=== PATIENT | female | born 1970 | race Caucasian/White ===

== ENCOUNTER 2018-09-26 09:50 | Emergency (ER) | payer OTHER ==
--- OUTSIDE RECORDS SUMMARY | 2018-09-26 09:52 | XMS REPORT | Continuity of Care Document ---
:1970 Author Organization [facility] Address [address] [place] [address] Phone Unavailable Care Team Providers Name Role Phone KIM CANNON MD Primary Care Physician Insurance Providers Guarantor Gail Rondon Address [address] [place] [address] Email [facility]lo Policy Number [id number] Subscriber's Name Gail Rondon Relationship 18 Self / Same As Patient Advance Directives Directive Response Recorded Date/Time Does the patient have an advance directive? No 11/14/17 1:34pm Do you have a Directive to Physician? No 05/13/18 5:58pm Do you have a Medical Power of Watch Inspector? No 05/13/18 5:58pm Do you have an out of hospital Do Not Resuscitate Order? No 05/13/18 5:58pm Do you have any special needs we should be aware of? No 05/13/18 5:58pm Do you have a support person here with you today? Yes 05/13/18 5:58pm Did patient receive Notice of Privacy Practices? Yes 05/13/18 5:58pm Did patient receive patient rights and responsibilities? Yes 05/13/18 5:58pm Problems No problem information available. Medications No medication information available. Social History Smoking Status Start Date Stop Date Never Smoker Hospital Discharge Instructions No hospital discharge instruction information available. Plan of Care Discharge Date 05/13/18 9:15pm Disposition HOME, SELF-CARE Condition at Discharge Stable Instructions/Education Provided Abdominal Pain - Adult Forms Provided Work/School Excuse Prescriptions See Medication Section Referrals KIM CANNON MD Order Date: Call for an appointment Address: [address] [place] [id number] Additional Instructions/Education Call for follow up appointment to see your medical provider or PROMOTIONS ASSISTANT SALES MARKETING provider. Take over the counter Motrin or Tylenol medication as needed for comfort. If prescribed pain medication on discharge, take the pain medication as prescribed and adhere to the warnings given for pain medication such as no swimming, driving operating heavy machinery, drinking or mixing with other medications that can interact with the narcotic. discussed at the bedside, drink fluids, rest and return to the emergency department for any fever, shortness of breath, chest pain, abdominal pain, trouble handling oral secretions or any new concerns. Functional Status No functional status information available. Allergies, Adverse Reactions, Alerts No known allergies. Immunizations No immunization information available. Vital Signs Acute Vital Signs Vital Response Date/Time Pulse Pulse Rate (adult) 77 bpm (60 - 90) 11/14/2017 4:25pm Respiratory Rate 18 bpm (12 - 24) 11/14/2017 4:25pm Blood Pressure 137/91 mm Hg 11/14/2017 4:25pm Height 5 ft 3 in 05/13/2018 5:36pm Weight 192 lb 05/13/2018 5:36pm Body Mass Index 34.0 kg/m^2 05/13/2018 5:36pm Results Laboratory Results Test Name Result Units Flags Reference Collection Result Comments Date/Time Date/Time White Blood Count 11.25 x10e3/uL H 4.8-10.8 05/13/2018 05/13/2018 5:42pm 6:12pm Red Blood Count 5.03 x10e6/uL 3.6-5.1 05/13/2018 05/13/2018 5:42pm 6:12pm Hemoglobin 12.6 g/dL 12.0-16.0 05/13/2018 05/13/2018 5:42pm 6:12pm Hematocrit 39.4 % 34.2-44.1 05/13/2018 05/13/2018 5:42pm 6:12pm Mean Corpuscular 78.3 fL L 81-99 05/13/2018 05/13/2018 Volume 5:42pm 6:12pm Mean Corpuscular 25.0 pg L 28-32 05/13/2018 05/13/2018 Hemoglobin 5:42pm 6:12pm Mean Corpuscular 32.0 g/dL 31-35 05/13/2018 05/13/2018 Hemoglobin 5:42pm 6:12pm Concent Red Cell 14.3 % 11.7-14.4 05/13/2018 05/13/2018 Distribution 5:42pm 6:12pm Width Platelet Count 307 x10e3/uL 140-360 05/13/2018 05/13/2018 5:42pm 6:12pm Neutrophils (%) 69.9 % 38.7-80.0 05/13/2018 05/13/2018 (Auto) 5:42pm 6:12pm Lymphocytes (%) 21.9 % 18.0-39.1 05/13/2018 05/13/2018 (Auto) 5:42pm 6:12pm Monocytes (%) 6.1 % 4.4-11.3 05/13/2018 05/13/2018 (Auto) 5:42pm 6:12pm Eosinophils (%) 1.2 % 0.0-6.0 05/13/2018 05/13/2018 (Auto) 5:42pm 6:12pm Basophils (%) 0.5 % 0.0-1.0 05/13/2018 05/13/2018 (Auto) 5:42pm 6:12pm IM GRANULOCYTES % 0.4 % 0.0-1.0 05/13/2018 05/13/2018 5:42pm 6:12pm Neutrophils # 7.9 H 2.1-6.9 05/13/2018 05/13/2018 (Auto) 5:42pm 6:12pm Lymphocytes # 2.5 1.0-3.2 05/13/2018 05/13/2018 (Auto) 5:42pm 6:12pm Monocytes # 0.7 0.2-0.8 05/13/2018 05/13/2018 (Auto) 5:42pm 6:12pm Eosinophils # 0.1 0.0-0.4 05/13/2018 05/13/2018 (Auto) 5:42pm 6:12pm Basophils # 0.1 0.0-0.1 05/13/2018 05/13/2018 (Auto) 5:42pm 6:12pm Absolute Immature 0.05 x10e3/uL 0-0.1 05/13/2018 05/13/2018 Granulocyte (auto 5:42pm 6:12pm Prothrombin Time 12.2 seconds 11.9-14.5 05/13/2018 05/13/2018 5:42pm 6:18pm Prothromb Time 0.83 05/13/2018 05/13/2018 Oral Anticoagulant Therapy INR Values: International 5:42pm 6:18pm 1. Low Intensity Therapy 1.5 - 2.0 Ratio 2. Moderate Intensity Therapy 2.0 - 3.0 3. High Intensity Therapy(1) 2.5 - 3.5 4. High Intensity Therapy(2) 3.0 - 4.0 5. Panic Value INR > 5.0 Activated Partial 28.3 seconds 23.8-35.5 05/13/2018 05/13/2018 Thromboplast Time 5:42pm 6:19pm Urine Color YELLOW YELLOW 05/13/2018 05/13/2018 5:42pm 6:16pm Urine Clarity CLEAR CLEAR 05/13/2018 05/13/2018 5:42pm 6:16pm Urine Specific 1.030 H 1.010-1.02 05/13/2018 05/13/2018 [place] 5 5:42pm 6:16pm Urine pH 6 5 - 7 05/13/2018 05/13/2018 5:42pm 6:16pm Urine Leukocyte NEGATIVE NEGATIVE 05/13/2018 05/13/2018 Esterase 5:42pm 6:16pm Urine Nitrite NEGATIVE NEGATIVE 05/13/2018 05/13/2018 5:42pm 6:16pm Urine Protein NEGATIVE NEGATIVE 05/13/2018 05/13/2018 5:42pm 6:16pm Urine Glucose NEGATIVE NEGATIVE 05/13/2018 05/13/2018 (UA) 5:42pm 6:16pm Urine Ketones NEGATIVE NEGATIVE 05/13/2018 05/13/2018 5:42pm 6:16pm Urine 0.2 mg/dL 0.2 - 1 05/13/2018 05/13/2018 Urobilinogen 5:42pm 6:16pm Urine Bilirubin NEGATIVE NEGATIVE 05/13/2018 05/13/2018 5:42pm 6:16pm Urine Blood NEGATIVE NEGATIVE 05/13/2018 05/13/2018 5:42pm 6:16pm Urine WBC NONE /HPF 0-5 05/13/2018 05/13/2018 5:42pm 6:18pm Urine RBC NONE /HPF 0-5 05/13/2018 05/13/2018 5:42pm 6:18pm Urine Bacteria MANY /HPF H NONE 05/13/2018 05/13/2018 5:42pm 6:18pm Urine Epithelial MODERATE /LPF NONE 05/13/2018 05/13/2018 Cells 5:42pm 6:18pm Sodium Level 136 mmol/L 136-145 05/13/2018 05/13/2018 5:40pm 6:25pm Potassium Level 3.7 mmol/L 3.5-5.1 05/13/2018 05/13/2018 5:40pm 6:25pm Chloride Level 100 mmol/L 98-107 05/13/2018 05/13/2018 5:40pm 6:25pm Carbon Dioxide 25 mmol/L 22-29 05/13/2018 05/13/2018 Level 5:40pm 6:25pm Anion Gap 14.7 mmol/L 8-16 05/13/2018 05/13/2018 5:40pm 6:25pm Blood Urea 7 mg/dL 7-26 05/13/2018 05/13/2018 Nitrogen 5:40pm 6:25pm Creatinine 0.74 mg/dL 0.57-1.11 05/13/2018 05/13/2018 5:40pm 6:25pm BUN/Creatinine 9 6-25 05/13/2018 05/13/2018 Ratio 5:40pm 6:25pm Estimat > 60 ML/MIN 60- 05/13/2018 05/13/2018 Ranges were taken from the National Kidney Disease Education Glomerular 5:40pm 6:25pm Program and the National Kidney Foundation literature. Filtration Rate Reference ranges: 60 or greater: Normal 16-59 (for 3 consecutive months): Chronic kidney disease 15 or less: Kidney failure Glucose Level 102 mg/dL 74-118 05/13/2018 05/13/2018 5:40pm 6:25pm Calcium Level 9.4 mg/dL 8.4-10.2 05/13/2018 05/13/2018 5:40pm 6:25pm Magnesium Level 2.3 MG/DL H 1.3-2.1 05/13/2018 05/13/2018 5:40pm 6:25pm Total Bilirubin 0.3 mg/dL 0.2-1.2 05/13/2018 05/13/2018 5:40pm 6:25pm Aspartate Amino 20 IU/L 5-34 05/13/2018 05/13/2018 Transf (AST/SGOT) 5:40pm 6:25pm Alanine 20 IU/L 0-55 05/13/2018 05/13/2018 Aminotransferase 5:40pm 6:25pm (ALT/SGPT) Total Protein 7.5 g/dL 6.5-8.1 05/13/2018 05/13/2018 5:40pm 6:25pm Albumin 4.2 g/dL 3.5-5.0 05/13/2018 05/13/2018 5:40pm 6:25pm Globulin 3.3 g/dL 2.3-3.5 05/13/2018 05/13/2018 5:40pm 6:25pm Albumin/Globulin 1.3 0.8-2.0 05/13/2018 05/13/2018 Ratio 5:40pm 6:25pm Alkaline 133 IU/L 40-150 05/13/2018 05/13/2018 Phosphatase 5:40pm 6:25pm Amylase Level 47 U/L 25-125 05/13/2018 05/13/2018 5:40pm 6:25pm Lipase 23 U/L 8-78 05/13/2018 05/13/2018 5:40pm 6:25pm Human Chorionic NEGATIVE NEGATIVE 05/13/2018 05/13/2018 Gonadotropin, 5:40pm 6:14pm Qual Procedures Procedure Status Date Provider(s) Computed tomography of brain without Completed 11/14/17 PACO GIBBS MD radiopaque contrast Computed tomography of abdomen and pelvis with Completed 05/13/18 DEBBIE LAMAR NP contrast Encounters Encounter Location Arrival/Admit Date Discharge/Depart Date Attending Provider Departed [facility] 05/13/18 3:49pm 05/13/18 9:15pm SHARON DEAN Emergency Room Patients [facility] Departed [facility] 11/14/17 12:42pm 11/14/17 4:48pm PACO GIBBS Emergency Room Patients [facility]
--- OUTSIDE RECORDS SUMMARY | 2018-09-26 09:52 | XMS REPORT ---
:1970 Author Organization [facility] Address [address] [place] [address] Care Team Providers Name Role Phone SHARON DEAN Unavailable Unavailable GAILPACO BERNAL Unavailable Unavailable Payers Payer Name Policy Type Policy Number Effective Date Expiration Date Problems This patient has no known problems. Allergies, Adverse Reactions, Alerts Allergy Allergy Status Severity Reaction(s) Onset Inactive Treating Comments Name Type Date Date Clinician No Known DA Active U 2014-06 Allergies 20 00:00:0 0 Medications This patient has no known medications. Results Test Description Test Time Test Comments Text Results Atomic Results Result Comments CA 2018-05-13 [facility] ABDOMEN/PELVIS 19:04:[address] [address] Patient Name: CATHY BLACKBURN MR #: [id number] : 1970 Age/Sex: 47/ F Req #: [id number] Adm Physician: Ordered by: DEBBIE LAMAR WAREHOUSE PRODUCTION WORKER Report #: [id number] Location: ER Room/Bed: Procedure: [id number] CT/CT ABDOMEN/PELVIS W Exam Date: Exam Time: REPORT STATUS: Signed EXAM: CT Abdomen and Pelvis WITH contrast INDICATION: Lower abdominal pain COMPARISON: None. TECHNIQUE: Abdomen and pelvis were scanned utilizing a multidetector helical scanner from the lung base to the pubic symphysis after administration of IV contrast. Coronal and sagittal reformations were obtained. Routine protocol was performed. Scan was performed when during portal venous phase. IV CONTRAST: 100 mL of Isovue-300 ORAL CONTRAST: Water RADIATION DOSE: Total DLP: 393.47 mGy*cm Estimated effective dose: (DLP x 0.015 x size factor) mSv All CT scans are performed using radiation dose reduction techniques. Technical factors are evaluated and adjusted to ensure appropriate moderation of exposure. Automated dose management technology is applied to adjust the radiation dose to minimize exposure while achieving a diagnostic-quality image. COMPLICATIONS: None FINDINGS: LINES and TUBES: None. LOWER THORAX: Unremarkable HEPATOBILIARY: No focal hepatic lesions. No biliary ductal dilation. GALLBLADDER: Not seen SPLEEN: No splenomegaly. PANCREAS: No focal masses or ductal dilatation. ADRENALS: No adrenal nodules KIDNEYS/URETERS: Kidneys enhance symmetrically. No hydronephrosis. No cystic or solid mass lesions. No stones. GI TRACT: No abnormal distention, wall thickening, or evidence of bowel obstruction. Appendix is normal. Moderate amount of retained feces in the colon could be due to constipation. PELVIC ORGANS/BLADDER: Unremarkable. LYMPH NODES: No lymphadenopathy. VESSELS: Unremarkable. PERITONEUM / RETROPERITONEUM: No free air or fluid. BONES: Unremarkable. SOFT TISSUES: Unremarkable. IMPRESSION: 1. Moderate amount of retained feces in the colon could be due to constipation. Signed by: Dr. Rodrick Spencer M.D. on 05/13/2018 7:11 PM Dictated By: RODRICK SPENCER MD, MD 10 Transcribed By: LALITA on 05/13/181910 COPY TO: DEBBIE LAMAR NP CT BRAIN WO [facility] [address] [address] Patient Name: CATHY BLACKBURN MR #: [id number] : 1970 Age /Sex: 46/F Req #: [id number] Adm Physician: Ordered by: PACO GIBBS MD Report #: [id number] Location: ER Room/Bed: Procedure: [id number] CT/CT BRAIN WO Exam Date: 11/14/17 Exam Time: 1335 REPORT STATUS: Signed Examination: CT BRAIN WITHOUT CONTRAST History:Fall. Head injury Comparison studies:None Technique: Axial images were obtained from the skull base to the vertex. Coronal and sagittal images reconstructed from the axial data. Intravenous contrast: None Findings: Scalp: Large right frontoparietal vertex scalp hematoma. Bones: No fractures, blastic or lytic lesions. Brain sulci: Appropriate for age. Ventricles: Normal in size and configuration. No hydrocephalus. Extra-axial space: No acute abnormality. Retrocerebellar and retrovermian arachnoid cyst. Parenchyma: No abnormal densities. No masses, hemorrhage, or acute or chronic cortical based vascular insults.. Sellar/suprasellar region: No abnormalities. Craniocervical junction: Patent foramen magnum. No Chiari one malformation. Incidental findings: None. Impression: 1. Large right frontoparietal vertex scalp hematoma. 2. No acute intracranial abnormalities. Signed by: Dr. Amanda Franco M.D. on 11/14/2017 2:14 PM Dictated By: AMANDA DUBON MD 1414 Transcribed By: LALITA on 11/14/17 141 COPY TO: PACO GIBBS MD
--- NOTE | 2018-09-26 10:45 | RAD REPORT ---
EXAM DESCRIPTION: RAD - Chest Single View - 09/26/2018 10:22 am CLINICAL HISTORY: Cough COMPARISON: None. TECHNIQUE: AP portable chest image was obtained 1019 hours . FINDINGS: Lungs are clear. Heart and vasculature are normal. No measurable pleural effusion and no p neumothorax. No acute bony abnormality seen. No acute aortic findings suspected. IMPRESSION: No acute cardiopulmonary process.
[2018-09-26 10:55] LABS: Urine Blood NEGATIVE (NEG); Urine Glucose NEGATIVE (NEG); Urine Protein NEGATIVE (NEG); Urine Specific Gravity 1.005 (1.005-1.030); Urine pH 5.5 (5.0-7.0)
--- NOTE | 2018-09-26 11:15 | EDPHYS ---
Physician Documentation [facility] Name: Gail Rondon Age: 47 yrs Sex: Female : 1970 Arrival Date: 09/26/2018 Time: 09:51 Bed 13 Private MD: None, None ED Physician Guero Malin HPI: 09/26 10:20 This 47 yrs old Female presents to ER via Wheelchair with complaints of rn Dizziness, Headache. 10:20 The patient or guardian reports cough, flu symptoms. Onset: The symptoms/episode rn began/occurred yesterday. Severity of symptoms: At their worst the symptoms were mild, in the emergency department the symptoms are unchanged. Modifying factors: The symptoms are alleviated by nothing, the symptoms are aggravated by nothing. The patient has not experienced similar symptoms in the past. The patient has not recently seen a physician. REports with who is in hospital, reports since yesterday having non-productive cough, runny nose, sinus congestion, headache, fatigue, feels drained. No urinary symptoms. No chest pain/abd pain/vomiting/diarrhea.. 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 - Social history:: Smoking status: Patient/guardian denies using tobacco. - Ebola Screening: : No symptoms or risks identified at this time. - Family history:: not pertinent. - Hospitalizations: : No recent hospitalization is reported. ROS: 10:20 Constitutional: Negative for fever, chills, and weight loss, Eyes: Negative for injury, rn pain, redness, and discharge, ENT: + nasal congestion and sore throat Neck: Negative for injury, pain, and swelling, Cardiovascular: + non-productive cough Respiratory: Negative for shortness of breath, cough, wheezing, and pleuritic chest pain, Abdomen/GI: Negative for abdominal pain, vomiting, diarrhea, and constipation, MS/Extremity: Negative for injury and deformity, Skin: Negative for injury, rash, and discoloration, Neuro: + headache and generalized weakness, no focal neurological complaint Exam: 10:20 Constitutional: This is a well developed, well nourished patient who is awake, alert, rn and in no acute distress. Ambulatory to room and bathroom without dififculty. Head/Face: Normocephalic, atraumatic. Eyes: Pupils equal round and reactive to light, extra-ocular motions intact. Lids and lashes normal. Conjunctiva and sclera are non-icteric and not injected. Cornea within normal limits. Periorbital areas with no swelling, redness, or edema. ENT: Mild pharyngeal erythema, no exudate, no swelling/masses Neck: Non-tender bilateral cervical LAD Respiratory: No increased work of breathing, no retractions or nasal flaring. Abdomen/GI: soft, non-tender Skin: Warm, dry MS/ Extremity: Pulses equal, no cyanosis. Neurovascular intact. Full, normal range of motion. Equal circumference. Neuro: Awake and alert, GCS 15, oriented to person, place, time, and situation. Cranial nerves II-XII grossly intact. Motor strength 5/5 in all extremities. Sensory grossly intact. Cerebellar exam normal. Normal gait. Vital Signs: 10:10 BP 132 / 78; Pulse 87; Resp 18; Temp 98.4(TE); Pulse Ox 99% on R/A; ph 11:34 BP 118 / 77; Pulse 74; Resp 18; Temp 97.8; Pulse Ox 98% on R/A; ph MDM: 09:55 Patient medically screened. rn 11:13 Differential Diagnosis: Bronchitis Influenza Upper Respiratory Infection Sinusitis rn Viral Syndrome Pneumonia. Data reviewed: vital signs, nurses notes, lab test result(s), radiologic studies, plain films, and as a result, I will discharge patient. Counseling: I had a detailed discussion with the patient and/or guardian regarding: the historical points, exam findings, and any diagnostic results supporting the discharge/admit diagnosis, lab results, radiology results, the need for outpatient follow up, to return to the emergency department if symptoms worsen or persist or if there are any questions or concerns that arise at home. Response to treatment: the patient's symptoms have mildly improved after treatment, and as a result, I will discharge patient. Special discussion: I discussed with the patient/guardian in detail that at this point there is no indication for admission to the hospital. It is understood, however, that if the symptoms persist or worsen the patient needs to return immediately for re-evaluation. 09/26 10:02 Order name: Flu; Complete Time: 11:13 rn 09/26 10:02 Order name: Strep; Complete Time: 10:54 rn 09/26 10:02 Order name: XRAY Chest (1 view); Complete Time: 10:54 rn 09/26 10:02 Order name: Urine Dipstick-Ancillary (obtain specimen); Complete Time: 10:10 rn 09/26 10:14 Order name: Urine Dipstick--Ancillary (enter results); Complete Time: 11:13 09/26 10:39 Order name: Throat Culture EDMS Administered Medications: No medications were administered Disposition: 09/26/18 11:14 Discharged to Home. Impression: viral syndrome, Headache. - Condition is Stable. - Discharge Instructions: General Headache Without Cause, Upper Respiratory Infection, Adult, Viral Respiratory Infection. - Medication Reconciliation Form, Thank You Letter, Antibiotic Education, Prescription Opioid Use form. - Follow up: Private Physician; When: As needed; Reason: Recheck today's complaints, Re-evaluation by your physician. - Problem is new. - Symptoms have improved. Signatures: Dispatcher [employer] EDMS Guero Malin MD MD rn PuckettMary Jo RN RN ph Corrections: (The following items were deleted from the chart) 11:37 11:14 09/26/2018 11:14 Discharged to Home. Impression: viral syndrome; Headache. ph Condition is Stable. Forms are Medication Reconciliation Form, Thank You Letter, Antibiotic Education, Prescription Opioid Use. Follow up: Private Physician; When: As needed; Reason: Recheck today's complaints, Re-evaluation by your physician. Problem is new. Symptoms have improved. rn
--- NOTE | 2018-09-26 11:15 | ER ---
Nurse's Notes [facility] Name: Gail Rondon Age: 47 yrs Sex: Female : 1970 Arrival Date: 09/26/2018 Time: 09:51 Bed 13 Private MD: None, None Diagnosis: viral syndrome;Headache Presentation: 09/26 09:57 Presenting complaint: Patient states: I just woke up this morning and my world was iw spinning, I also have been congested and have headache and sore throat, I also have this benign cyst under my left arm that I wanna get checked out too. Transition of care: patient was not received from another setting of care. Onset of symptoms was September 26, 2018. Risk Assessment: Do you want to hurt yourself or someone else? Patient reports no desire to harm self or others. Initial Sepsis Screen: Does the patient meet any 2 criteria? No. Patient's initial sepsis screen is negative. Does the patient have a suspected source of infection? No. Patient's initial sepsis screen is negative. Care prior to arrival: None. 09:57 Method Of Arrival: Wheelchair 09:57 Acuity: RAMOS 3 iw CLERK SPECIALIST: 10:10 LMP N/A - Irregular menses ph Historical: - Allergies: 10:13 No Known Allergies; ph - PSHx: 10:13 ; Cholecystectomy; ph - Immunization history:: Adult Immunizations unknown. - Social history:: Smoking status: Patient/guardian denies using tobacco. - Ebola Screening: : No symptoms or risks identified at this time. - Family history:: not pertinent. - Hospitalizations: : No recent hospitalization is reported. Screenin:14 Abuse screen: Denies threats or abuse. Denies injuries from another. Nutritional ph screening: No deficits noted. Tuberculosis screening: No symptoms or risk factors identified. Fall Risk None identified. Assessment: 10:14 General: Appears in no apparent distress. uncomfortable, well groomed, Behavior is ph calm, cooperative, appropriate for age, Denies fever. Pain: Complains of pain in head and throat. Neuro: Level of Consciousness is awake, alert, obeys commands, Oriented to person, place, time, situation, Reports dizziness, headache Denies weakness blurred vision. Cardiovascular: Capillary refill < 3 seconds in bilateral fingers Patient's skin is warm and dry. Respiratory: Airway is patent Respiratory effort is even, unlabored, Respiratory pattern is regular, symmetrical. GI: Patient currently denies abdominal pain, diarrhea, nausea, vomiting. EENT: Reports nasal congestion nasal discharge pain when swallowing. Derm: Skin is intact, is healthy with good turgor, Skin is pink, warm \T\ dry. Musculoskeletal: Circulation, motion, and sensation intact. Range of motion: intact in all extremities. Vital Signs: 10:10 BP 132 / 78; Pulse 87; Resp 18; Temp 98.4(TE); Pulse Ox 99% on R/A; ph 11:34 BP 118 / 77; Pulse 74; Resp 18; Temp 97.8; Pulse Ox 98% on R/A; ph ED Course: 09:51 Patient arrived in ED. mr 09:51 None, None is Private Physician. mr 09:55 Guero Malin MD is Attending Physician. rn 09:55 Mary Jo Puckett RN is Primary Nurse. ph 09:59 Triage completed. iw 10:12 Urine collected: clean catch specimen, clear. mh5 10:13 Patient has correct armband on for positive identification. Bed in low position. Call mh5 light in reach. Warm blanket given. Pulse ox on. NIBP on. 10:14 Arm band placed on. ph 10:21 X-ray completed. Portable x-ray completed in exam room. Patient tolerated procedure la2 well. 10:22 XRAY Chest (1 view) In Process Unspecified. EDMS 11:33 No provider procedures requiring assistance completed. Patient did not have IV access ph during this emergency room visit. Administered Medications: No medications were administered Outcome: 11:14 Discharge ordered by . rn 11:34 Discharged to home ambulatory. ph 11:34 Condition: good 11:34 Discharge instructions given to patient, Instructed on discharge instructions, follow up and referral plans. Demonstrated understanding of instructions, follow-up care. 11:37 Patient left the ED. ph Signatures: Dispatcher [employer] EDME Lidia Wharton Irene, RN Guero Regalado MD MD rn Hall, Patricia, RN RN ph Martinez, Maria 5 Hazel Bowens la2
== END 2018-09-26 11:37 | disposition home or self-care (01) ==
LOC: ER 09:50
DX: B34.9 Viral infection, unspecified (principal); R51 Headache; R05 Cough; R42 Dizziness and giddiness
CPT/HCPCS: 71045; 81003; 87070; 87081; 87804; 99283